=== PATIENT | male | born 1970 | race Caucasian/White ===

== ENCOUNTER → 2020-11-15 12:56 | Outpatient (CLI) | payer OTHER, SELFPAY ==
--- NOTE | ~2020-11-15 | XR_ITS ---
XR_CERV2-3V_CR DATE: 11/15/2020 13:09 INDICATION: C6 vertebral fracture TECHNIQUE: AP, open-mouth, odontoid, lateral and swimmer views COMPARISON: None FINDINGS: There is straightening of the cervical spine which may be due to muscle spasm. C1 and C2 are normally aligned and the odontoid process is intact. No fracture or dislocation or lock ed facet or prevertebral soft tissue swelling is evident. There is mild anterior spurring at C2-3. There is moderate loss of interspace height and mild anterior spurring at C4-5 and C5-6. There is severe loss of disc space height at C6-7. IMPRESSION: Straightening of the cervical spine, which may be due to muscle spasm Multilevel degenerative disc disease, most severe at C6-7 Reviewed, dictated and finalized at [facility]. Reviewed, dictated and finalized at location B. [employer] IMPRESSION: Straightening of the cervical spine, which may be due to muscle spa sm Multilevel degenerative disc disease, most severe at C6-7
== END ==
DX: S12.501A Unspecified nondisplaced fracture of sixth cervical vertebra, initial encounter for closed fracture (principal); M47.812 Spondylosis without myelopathy or radiculopathy, cervical region
CPT/HCPCS: 72040

== ENCOUNTER → 2021-05-08 07:54 | Outpatient (CLI) | payer OTHER, SELFPAY ==
--- NOTE | ~2021-05-08 | MR_ITS ---
EXAMINATION: MR cervical spine wo con DATE: 05/08/2021 08:53 INDICATION: Nondisplaced fracture of sixth cervical vertebra. TECHNIQUE: Magnetic resonance imaging (MRI) of the cervical spine was performed without intravenous c ontrast. Sequences included sagittal T2-weighted FSE, sagittal T2-weighted FS FSE, sagittal T1-weight ed FSE, axial MERGE, and axial T2-weighted FSE. COMPARISON: Cervical spine radiographs 11/15/2020 FINDINGS: There is 8 degrees levocurvature of cervical spine. There is 2 mm retrolisthesis of C3 on C 4 and 2 mm anterolisthesis of C6 on C7. There is mild chronic anterior wedging of C7 vertebral body. There is mild focal kyphosis at C6-C7. There is mildly decreased disc height at C3-C4, moderately dec reased disc height at C4-C5 and C5-C6, and severely decreased disc height at C6-C7. The spinal cord s ignal intensity is normal. The following disc levels are specifically discussed: C2-C3: There is a left central protrusion with annular fissure. There is mild left uncovertebral join t osteoarthritis. There is severe right and mild left facet joint osteoarthritis. There is mild bilat eral neural foraminal stenosis. There is mild central canal stenosis. C3-C4: The disc is bulging and has an annular fissure. There is mild right and moderate left uncovert ebral joint osteoarthritis. There is severe bilateral facet joint osteoarthritis. There is moderate r ight and mild left neural foraminal stenosis. There is moderate central canal stenosis with ventral a nd dorsal indentation of the spinal cord. C4-C5: The disc is bulging as an annular fissure. There is moderate right and severe left uncovertebr al joint osteoarthritis. There is severe right and mild left facet joint osteoarthritis. There is mod erate right and mild left neural foraminal stenosis. There is moderate central canal stenosis with ve ntral and dorsal indentation of the spinal cord. C5-C6: The disc is bulging. There is severe right and moderate left uncovertebral joint osteoarthriti s. There is severe right and moderate left facet joint osteoarthritis. There is moderate right and mi ld left neural foraminal stenosis. There is mild central canal stenosis. C6-C7: The disc does not extend beyond the endplate margin. There is severe bilateral uncovertebral j oint osteoarthritis. There is moderate bilateral facet joint osteoarthritis. There is mild bilateral neural foraminal stenosis. There is mild central canal stenosis. C7-T1: The disc does not extend beyond the endplate margin. There is no uncovertebral joint osteoarth ritis. There is moderate right and severe left facet joint osteoarthritis. There is mild bilateral ne ural foraminal stenosis. There is no central canal stenosis. IMPRESSION: 1. Severe cervical spondylosis. Reviewed, dictated and finalized at location A.
== END ==
PROVIDERS: PCP Physician Assistant
DX: S12.501D Unspecified nondisplaced fracture of sixth cervical vertebra, subsequent encounter for fracture with routine healing (principal); M47.812 Spondylosis without myelopathy or radiculopathy, cervical region
CPT/HCPCS: 72141

== ENCOUNTER → 2023-07-11 14:22 | Outpatient (CLI) | payer BC, SELFPAY ==
--- NOTE | ~2023-07-11 | XR_ITS ---
EXAMINATION: XR lumbar spine 2-3V DATE: 07/11/2023 14:54 INDICATION: Low back pain TECHNIQUE: Anteroposterior and lateral views of the lumbar spine, and cone-down lateral view of the l umbosacral junction were obtained. COMPARISON: CT, 04/01/2017 FINDINGS: Mild anterior wedging at L1 and appears chronic. Vertebral body alignment is normal. No fra cture is identified. There is mild facet joint osteoarthritis of the lower lumbar spine. There is mil d loss of intervertebral disc space height at L4-5. Small degenerative osteophytes project from the a nterior endplates of multiple vertebral bodies. An IVC filter is noted. IMPRESSION: 1. Mild anterior wedging at L1 which appears chronic. If there is high clinical suspicion for acute f racture, consider CT or MRI. 2. Mild lumbar spondylosis. Reviewed, dictated and finalized at location L. IMPRESSION: 1. Mild anterior wedging at L1 which appears chronic. If there is high clinical suspicion for acute fracture, consider CT or MRI. 2. Mild lumbar spondylosis.
== END ==
PROVIDERS: PCP Physician Assistant; Visit Provider Physician Assistant
DX: M54.50 Low back pain, unspecified (principal); M48.56XA Collapsed vertebra, not elsewhere classified, lumbar region, initial encounter for fracture; M43.06 Spondylolysis, lumbar region
CPT/HCPCS: 72100

== ENCOUNTER → 2023-08-08 07:02 | Outpatient (CLI) | payer BC, SELFPAY ==
--- NOTE | ~2023-08-08 | MR_ITS ---
MRI of the lumbar spine Clinical History: Radiculopathy Technique: Axial T2-weighted images, and sagittal T1-weighted, T2-weighted, and T2 fat-sat images wer e acquired. Findings: No fracture and 5. There is minimal grade 1 retrolisthesis of L3 over L4. No suspicious bon e marrow signal reality seen. At L1-L2, there is no disc bulge or herniation. There is mild facet joint hypertrophy. No spinal noa l stenosis or neural foraminal narrowing. At L2-L3, there is no disc bulge or herniation. There is minimal facet joint hypertrophy. No spinal c anal stenosis or neural foraminal narrowing. At L3-L4, there is mild disc bulge with moderate facet arthropathy. No central canal stenosis or defi nite neural foraminal narrowing. At L4-L5, there is disc bulge and moderate facet arthropathy. There is no billy central canal stenosi s. There is moderate bilateral neural foraminal narrowing. At L5-S1, there is minimal disc bulge with moderate facet arthropathy. No central canal stenosis or n eural foraminal narrowing. Paravertebral soft tissues are unremarkable. Impression: Mild degenerative spondylosis, as above. Reviewed, dictated and finalized at location M. [employer] M[employer]INE [employer]ER Impression: Mild degenerative spondylosis, as above.
== END ==
PROVIDERS: PCP Physician Assistant; Visit Provider Physician Assistant
DX: M47.26 Other spondylosis with radiculopathy, lumbar region (principal)
CPT/HCPCS: 72148

== ENCOUNTER 2024-08-05 09:18 | Day surgery (SDC) | payer OTHER, SELFPAY ==
[2024-06-30 10:45] VITALS: BMI 33.3
[2024-07-30 09:00] VITALS: BMI 29.5
--- NOTE | 2024-08-04 14:06 | P.PNAN_ITS ---
Anes - Initial Pre Proc Eval Procedure: Operation Date: 08/05/24 11:30 Proposed Procedures p Screening Colonoscopy - Jarod Gonsalez MD Date/Time: 08/04/24 14:06 Surgeon: Jarod Gonsalez MD Pre Op Diagnosis: Neoplasm Screening Patient Data Age: 54 Gender: M Height: 1.88 m Weight: 104.5 kg Allergies Allergy/AdvReac Type Severity Reaction Status Date / Time No Known Allergies Allergy Verified 08/05/24 10:27 Home Medications Medication Instructions Recorded Confirmed Type allopurinol 300 mg tablet 300 mg PO DAILY 07/30/24 08/05/24 History duloxetine 20 mg capsule,delayed 40 mg PO DAILY 07/30/24 08/05/24 History release fenofibrate nanocrystallized 145 145 mg PO DAILY 07/30/24 08/05/24 History mg tablet fluoxetine 10 mg capsule 10 mg PO DAILY 07/30/24 08/05/24 History risperidone 0.5 mg tablet 0.5 mg PO HS 07/30/24 08/05/24 History simvastatin 20 mg tablet 20 mg PO DAILY 07/30/24 08/05/24 History Patient hx anesthesia problems: none Family hx anesthesia problems: none Results Review: All pre-operative results and documents have been reviewed as part of the pre- operative evaluation. [facility], LAT[facility] Past Medical History Medical History (Updated 08/05/24 @ 11:02 by Jarod Gonsalez MD) Anxiety Gout Hyperlipidemia PTSD (post-traumatic stress disorder) Social History Social History Smoking status: Never smoker Alcohol intake: current Drinks per week: 2 Substance use type: does not use Living arrangements: with family Spiritual care concerns: No Anes - Eval Final PreProcedure Day of Procedure 08/04/24 14:06 Patient weight: overweight Heart: regular rate and rhythm Lungs: clear to auscultation Airway: Mallampati scale class II Neurological: alert and oriented Last oral intake: >/= 8 hours ASA classification: II Emergent: no Anesthetic plan: proceed Anesthesia type and monitoring: general GIVS and standard monitoring Results Review: All pre-operative results and documents have been reviewed as part of the pre- operative evaluation. Informed Consent: The patient's anesthetic plan and its attendant risks and benefits were discussed with the patient/family/POA. Questions were solicited and answers provided to the satisfaction of the patient/family/POA.
[2024-08-05 10:28] VITALS: BP 108/87; PULSE 76; RESP 18; TEMP 36.9; O2SAT 100
[2024-08-05] MEDS: LACTATED RINGERS 1,000 ML 150 ML IV CONT (10:31)
--- NOTE | 2024-08-05 11:01 | PM.HPGS ---
History of Present Illness History of Present Illness Consent: Risks, benefits, and alternatives have been discussed and questions answered. Patient agrees to proceed with procedure. Chief complaint: Neoplasm Screening Narrative: Nathan Weber is a 54 year old male presents for screening colonoscopy. Patient's current weight appetite and bowel movements are normal. He denies abdominal pain. Patient has had bleeding. Family history is noncontributory. Review of Systems Review of Systems: All systems reviewed & are unremarkable except as noted in HPI and below PMFSH Past Medical History Medical History (Updated 08/05/24 @ 11:02 by Jarod Gonsalez MD) Anxiety Gout Hyperlipidemia PTSD (post-traumatic stress disorder) Social History Social History Smoking status: Never smoker Alcohol intake: current Drinks per week: 2 Substance use type: does not use Living arrangements: with family Spiritual care concerns: No Meds Home Medications and Allergies Home Medications Medication Instructions Recorded Confirmed Type allopurinol 300 mg tablet 300 mg PO DAILY 07/30/24 08/05/24 History duloxetine 20 mg capsule,delayed 40 mg PO DAILY 07/30/24 08/05/24 History release fenofibrate nanocrystallized 145 145 mg PO DAILY 07/30/24 08/05/24 History mg tablet fluoxetine 10 mg capsule 10 mg PO DAILY 07/30/24 08/05/24 History risperidone 0.5 mg tablet 0.5 mg PO HS 07/30/24 08/05/24 History simvastatin 20 mg tablet 20 mg PO DAILY 07/30/24 08/05/24 History Allergies Allergy/AdvReac Type Severity Reaction Status Date / Time No Known Allergies Allergy Verified 08/05/24 10:27 Vital Signs Vital Signs - 24 hr 08/05/24 10:28 Temperature 98.4 F Pulse Rate 76 Respiratory Rate 18 Blood Pressure 108/87 Pulse Oximetry 100 Oxygen Delivery Room Air Exam Narrative: Physical exam reveals patient to be alert. Vital signs stable. HEENT exam is unremarkable. Patient is anicteric. Lungs are auscultation and to percussion is without murmur or extra sounds. Abdomen bowel sounds are present soft nontender with no organomegaly. Digital external rectal exam normal. Assessment and Plan Assessment and plan (1) Screen for colon cancer: Code(s): Z12.11 - Encounter for screening for malignant neoplasm of colon Status: Acute Assessment and Plan: Patient presents today for neoplasia screening colonoscopy. He to be at average risk for colon polyps. Further recommendations be given after endoscopy.
[2024-08-05 12:20] VITALS: BP 108/71; PULSE 75; RESP 16; O2SAT 97
[2024-08-05 12:30] VITALS: BP 107/79; PULSE 68; RESP 16; O2SAT 98
[2024-08-05 12:40] VITALS: BP 117/82; PULSE 70; RESP 18; O2SAT 99
--- NOTE | 2024-08-05 12:51 | WPDANESPN ---
Anes - Prog Note Post-Op Date/Time: 08/05/24 12:51 Cardiovascular status: normal Respiratory status: normal Airway patency: baseline Mental status: baseline Post-Op hydration status: normal Vital Signs: Last Vital Signs Temp 36.9 C 08/05/24 10:28 Pulse 70 08/05/24 12:40 Resp 18 08/05/24 12:40 BP 117/82 08/05/24 12:40 Pulse Ox 99 08/05/24 12:40 O2 Del Method Room Air 08/05/24 12:40 Pain Score (VAS): 0 I/O: Intake & Output 08/04/24 08/05/24 08/05/24 23:59 07:59 15:59 Intake Total 200 Balance 200 Post-procedural complaints: none Patient Feedback: Patient satisfied with anesthetic care. Other Findings: Patient vital signs back to baseline. Patient denies nausea and vomiting. Patient's pain under control. Patient OK for discharge.
== END 2024-08-05 12:55 | disposition home or self-care (01) ==
PROVIDERS: PCP Physician Assistant; Visit Provider Internal Medicine Gastroenterology
PROC: 0DJD8ZZ Inspection of Lower Intestinal Tract, Via Natural or Artificial Opening Endoscopic (ICD-10-PCS; CPT 45378; principal; 2024-08-05 11:30)
DX: Z12.11 Encounter for screening for malignant neoplasm of colon (principal); K63.89 Other specified diseases of intestine; K64.8 Other hemorrhoids
CPT/HCPCS: 45378

== ENCOUNTER 2025-05-28 08:50 | Outpatient (CLI) | payer OTHER, SELFPAY ==
--- NOTE | ~2025-05-28 | US_ITS ---
US renal BI 05/28/2025 09:14 Procedure: Realtime transabdominal ultrasound of the kidneys and bladder. Indication: Abnormal laboratory values. Comparison: No prior studies for comparison. Findings: Renal echotexture is normal bilaterally without hydronephrosis, contour deforming mass or renal calculus. The right kidney measures 12.2 cm and left kidney measures 10.4 cm. Bladder within normal limits. Impression: 1: Unremarkable renal ultrasound. No stones, masses or hydronephrosis. Reviewed, dictated and finalized at location O. Impression: 1: Unremarkable renal ultrasound. No stones, masses or hydronephrosis.
== END 2025-05-28 08:51 | disposition home or self-care (01) ==
PROVIDERS: PCP Physician Assistant; Visit Provider Physician Assistant
DX: R79.89 Other specified abnormal findings of blood chemistry (principal)
CPT/HCPCS: 76770